=== PATIENT | female | born 1955 | race Caucasian/White ===

== ENCOUNTER → 2024-08-02 15:15 | Outpatient (REF) | payer MEDICARE, OTHER, SELFPAY | LOC: HWWDC 15:15 | PROVIDERS: ATTENDING PHYSICIAN Physician Assistant Medical | DX: Z12.31 Encounter for screening mammogram for malignant neoplasm of breast (principal) | CPT/HCPCS: 77063; 77067 ==

== ENCOUNTER 2025-04-03 10:11 | Emergency (ER) | payer MEDICARE, OTHER, SELFPAY ==
[2025-04-03 10:13] VITALS: BP 149/82
--- NOTE | 2025-04-03 10:30 | ED.GENMED ---
History of Present Illness
General
Chief Complaint: Fall
Time Seen by Provider: 04/03/25 10:29
History of Present Illness
History of Present Illness:
TIME OF INITIAL EVALUATION
- 10:30 AM
REVIEW OF OLD RECORDS
- The patient has history of admission here with transient global amnesia in 2022
Note:
CHIEF COMPLAINT(S)
Fall resulting in a head injury.
HISTORY OF PRESENT ILLNESS
The patient is a 69-year-old female who presented to the emergency department after falling from a chair the previous evening. She was standing on a chair to retrieve something, lost her footing, and slipped, striking her head on a china cabinet.
The patient reports a brief loss of consciousness, evidenced by hearing a loud bang followed by a sensation of opening her eyes. Upon gaining awareness, she felt disoriented or 'spacey' and reports a sensation of being 'off-balance.' No headache was
noted, but the patient experienced transient pins and needles since the fall. Prior to the fall, the patient was focused on attending a choir dinner, which delayed her seeking medical attention. The patients spouse remarked that she was 'woozy' and
initially resisted visiting the ER.
The patient is not on any anticoagulant medications, such as aspirin or Coumadin. There was no chest pain or vomiting reported, though she described experiencing a sensation of chills or pins and needles post-fall. Her pupil examination revealed
anisocoria, particularly with the left pupil appearing larger, but its potentially related to her previous cataract surgery and corneal transplant, as this finding was considered normal.
A review of past records revealed the patient had an episode of transient global amnesia in 2012, but she reports no ongoing memory or cognitive issues from that event. Historically, she has experienced long periods of time passing quickly,
indicating attention issues, which she feels have since resolved.
I discussed with at bedside.
EXTERNAL RECORDS REVIEWED
The patient�s records from 2012 indicate an episode of transient global amnesia.
CHRONIC MEDICAL CONDITIONS SIGNIFICANTLY AFFECTING CARE
History of transient global amnesia.
PAST SURGICAL HISTORY
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
PHYSICAL EXAM
- No focal neurological deficits noted. Anisocoria present, left pupil slightly larger, considered normal post-surgical variation.
- No alarming signs noted.
- General: Well appearing in no distress
- HEENT: Moist oral mucosa
- Cardiovascular: No chest wall tenderness
- Pulmonary: No respiratory distress
- Abdomen: Soft with no peritoneal signs, no tenderness
- Neurologic: Excellent strength all extremities, no coordination deficits
- Psychiatric: Appropriate mental status, normal insight and judgement, very minimal cognitive deficits but overall answering questions appropriately
- Extremities: Nontender, no edema, moves all extremities equally
- Skin: No rash, no lesions
- C-spine: No midline C-spine tenderness
PROBLEM LIST
Acute Problems:
- Fall with head injury
- Possible concussion
Chronic Problems:
- Anisocoria post-cataract and corneal transplant.
PLAN
A computed tomography scan of the head to rule out any intracranial bleeding or significant injury.
DIFFERENTIAL DIAGNOSIS
The Differential Diagnosis includes, in no particular order and is not limited to:
- Concussion
- Intracranial hemorrhage
- Vestibular dysfunction
- Orthostatic hypotension
- Inner ear disorder
- Transient ischemic attack
- Stroke
- Post-traumatic epilepsy
- Subdural hematoma
- Anxiety disorder
RADIOLOGY
- CT imaging obtained
EKG
- Not indicated
LABS
- Not indicated
UPDATE
-
DIAGNOSIS
- Possible concussion (ICD-10 Code: S06.0X0A)
SUMMARY OF ENCOUNTER
The patient, a 69-year-old female, presented to the emergency department following a fall from a chair, resulting in a head injury. She experienced a brief loss of consciousness and has since felt disoriented and off-balance. A CT scan of the brain
was performed to rule out any intracranial bleeding. Preliminary assessment revealed no alarming signs, but confirmation from the radiologist is pending.
ASSESSMENT
The patient is likely experiencing symptoms consistent with a concussion resulting from the fall.
PLAN
The patient was advised to rest and avoid strenuous activities to aid recovery from the potential concussion. She was advised to refrain from going to the gym or engaging in any activities that involve significant movement until her symptoms have
resolved. The option to attend [employer] practice was left to her discretion, provided her symptoms do not worsen.
INDEPENDENT INTERPRETATION OF TESTS
- My independent interpretation of the CT scan of the brain is that there is no evident intracranial bleeding or alarming findings, pending confirmation from the radiologist.
PATIENT EDUCATION AND COUNSELING
The patient was counseled on post-concussion care, emphasizing the importance of rest and avoiding activities that may pose a risk of further injury. It was recommended to monitor symptoms and adjust activities accordingly, prioritizing safety and
health.
MEDICAL DECISION MAKING
Number and Complexity of Problems Addressed: The patient presented with a potential concussion following a fall, requiring careful evaluation to rule out serious complications such as intracranial hemorrhage.
Data: The decision was supported by a CT scan to assess potential head injury severity. Results were preliminarily positive, showing no alarming findings.
Risk: Consideration for potential concussion management and the necessity to avoid further injury was emphasized. Recommendations for activity restrictions were given to mitigate risks associated with repeated head trauma.
Past History
Past History
ED Past Medical History: Other (ADHD)
ED Past Surgical History: Other (Corneal transplant right eye)
Social History
Tobacco: Non-smoker
Alcohol: Occasional
Personal:
Living: with family
Family History
Family History: Unable to obtain
Phy Exam
Physical Exam
Physical Exam:
See HPI
Course
Orders/Labs/Results
Orders:
Orders
04/03/25 10:38
CT Head W/o Iv Contrast Urgent
Comment:
Reason For Exam: head trauma ?alt ms
Vital Signs
Initial and Last Documented VS:
Initial Vital Signs
Temp Pulse Resp BP Pulse Ox
36.6 C 59 18 149/82 98
04/03/25 10:13 04/03/25 10:13 04/03/25 10:13 04/03/25 10:13 04/03/25 10:13
Last Documented Vital Signs
Temp Pulse Resp BP Pulse Ox
36.6 C 59 18 149/82 98
04/03/25 10:13 04/03/25 10:13 04/03/25 10:13 04/03/25 10:13 04/03/25 10:13
*Pulse Oximetry
Patient hypoxic: no (98% room air-normal)
*Critical Care Note
Total Time (30-74mins, 75-104mins- exclusive of procedures): Not Applicable
ED Attending Note
-
Portions of this chart may have been created with voice recognition software.� Occasional wrong word or��sound alike� substitutions may have occurred due to the inherent limitations of voice recognition software.
Discharge Plan
Departure
Patient Disposition: Home (Routine Discharge)
Date of Disposition: 04/03/25
Time of Disposition: 11:16
Patient with high blood pressure during this ER visit?: Yes
Discharge Problem:
Concussion
Instructions: Concussion, Adult (DC), BLOOD PRESSURE
Prescriptions:
No Action
citalopram 10 MG tablet
10 mg PO HS
fluticasone propionate 1 SPRAY spray,suspension
1 spray intranasal DAILY PRN (Reason: allergies)
(DME) hard/soft/gas permeable prods [Opti-Soak Soothing Drops] 15 ML drops
RIGHT EYE DAILY
Patient Comments:
puts on contact lens
(DME) soft lens rinse,store solution [Bio true] 118 ML solution
LEFT EYE DAILY
Patient Comments:
when she puts contacts in
aspirin 81 MG tablet,delayed release (DR/EC)
81 mg PO DAILY Qty: 0 0RF
dexmethylphenidate 5 MG tablet
1 tab PO TID Qty: 0 0RF
Patient Comments:
5 or 10 mg ? 2 pill bottles different doses
albuterol sulfate 8.5 GM HFA aerosol inhaler
8.5 gm inhalation DAILY PRN (Reason: sob) Qty: 0 0RF
Referrals:
Arvind Mercado MD [Family Provider, Family Practice]
Activity Restrictions/Additional Instructions:
CAT scan of the brain shows no bleeding. Return here if worse or other concerns. I suspect your symptoms are related to a concussion.
Interventions
Interventions:
*Risk Screen - Suicide Last Done: 04/03/25 10:13
*General Assessment Last Done: 04/03/25 10:13
*Neglect/Abuse Screening Last Done: 04/03/25 10:13
ED-Musculoskeletal Assessment Last Done: 04/03/25 10:32
ED- Neurological Assessment Last Done: 04/03/25 10:32
ED-Skin Assessment Last Done: 04/03/25 10:32
Discharge Date and Time
Print Language: ALBANIAN
[2025-04-03 12:02] VITALS: BP 136/82
== END 2025-04-03 11:40 | disposition home or self-care (01) ==
LOC: EMR 10:11
PROVIDERS: EMERGENCY PHYSICIAN Emergency Medicine; FAMILY PHYSICIAN Family Medicine
DX: S06.0X1A Concussion with loss of consciousness of 30 minutes or less, initial encounter (principal); W07.XXXA Fall from chair, initial encounter; Z94.7 Corneal transplant status
CPT/HCPCS: 99284; 70450

== ENCOUNTER 2025-08-05 06:28 | Emergency (ER) | payer MEDICARE, OTHER, SELFPAY ==
[2025-08-05 06:39] VITALS: BP 130/84
--- NOTE | 2025-08-05 08:26 | ED.SKININJ ---
HPI-Injury
General
Chief Complaint: Eye Problems
Source: patient
Exam Limitations: none
Time Seen by Provider: 08/05/25 07:55
Nursing documentation reviewed up to this point in time: agreed with
History of Present Illness-Injury
Initial Injury comments:
70 yo female with hx of Keratoconus, followed by [facility], presents for irritation and swelling of right eye. She states yesterday a.m. she had some mucus in the eye and as she went to wipe away the mucus she accidentally poked herself in
the eye. She then put her contacts in as it did not feel that bad but the eye had been watering throughout the day. 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 She took the contact out again and put it back in again. By the evening there was more mucus discharge the eye was irritated, she irrigated it with saline and removed her contacts again. She does
have a sensation of foreign body in the eye. She denies change in vision. She denies pain in the eyeball. She denies pain with moving the eye. She denies headache.
Past History
Past History
ED Past Medical History: Other (ADHD, Keratoconus)
ED Past Surgical History: Other (Corneal transplant right eye)
Social History
Tobacco: Non-smoker
Alcohol: Occasional
Personal:
Living: with family
Employment: Employed
Family History
Family History: Unable to obtain
Review of Systems
Review of Systems
Allergies reviewed?: Yes
All Other Systems: ROS reviewed and negative except as documented in HPI and ROS
Phy Exam
Physical Exam
Physical Exam:
PHYSICAL EXAMINATION:
General: no apparent distress, not acutely ill
Neuro: alert and oriented.
Psychiatric: well kept. interactive and cooperative
Musculoskeletal: Moves with ease
Skin: Warm, pink.
Eye Exam
Eye Exam: PERRL, EOMI, globe normal, visual basurto normal and other (Visual acuity, correctly reads number of fingers at 10 feet with affected eye, states 'I can't see very well without my contacts in.' Conjunctiva injected, mild periorbital
swelling, mild chemosis, fluorescein stain reveals several small corneal abrasions about the cornea. Lid everted, No FB )
Course
Orders/Labs/Results
Orders:
Orders
08/05/25 08:02
Tetracaine HCl [Tetracaine 0.5% Ophthalmic Solution] 1 drop .ROUTE .STK-MED ONE
08/05/25 08:19
Ofloxacin [Ocuflox] See Dose Instructions OPHTH NOW STA
Vital Signs
Initial and Last Documented VS:
Initial Vital Signs
Temp Pulse Resp BP Pulse Ox
97.6 F 57 20 130/84 98
08/05/25 06:39 08/05/25 06:39 08/05/25 06:39 08/05/25 06:39 08/05/25 06:39
Last Documented Vital Signs
Temp Pulse Resp BP Pulse Ox
97.6 F 57 20 130/84 98
08/05/25 06:39 08/05/25 06:39 08/05/25 06:39 08/05/25 06:39 08/05/25 08:31
MDM/Problems Addressed
Differential Diagnosis Includes:
corneal abrasion, FB, iritis
MDM/Problems Addressed:
70 yo female with hx of Keratoconus, followed by [facility] [place], presents for irritation and swelling of right eye. She states yesterday a.m. she had some mucus in the eye and as she went to wipe away the mucus she accidentally poked herself in
the eye. She then put her contacts in as it did not feel that bad but the eye had been watering throughout the day. 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 She took the contact out again and put it back in again. By the evening there was more mucus discharge the eye was irritated, she irrigated it with saline and removed her contacts again. She does
have a sensation of foreign body in the eye. She denies change in vision. She denies pain in the eyeball. She denies pain with moving the eye. She denies headache.
NAD
Good relief with topical anesthetic.
Multiple small corneal abrasions, no FB, no ciliary flare
Ocuflox drops applied and pt will f/u with her [facility] eye doctor
Return instructions discussed, all questions answered
*Pulse Oximetry
SaO2: 98
Oxygen Mode of Delivery: Room air
Patient hypoxic: not evaluated
*Critical Care Note
Total Time (30-74mins, 75-104mins- exclusive of procedures): Not Applicable
ED Attending Note
-
Portions of this chart may have been created with voice recognition software.� Occasional wrong word or��sound alike� substitutions may have occurred due to the inherent limitations of voice recognition software.
Discharge Plan
Departure
Patient Disposition: Home (Routine Discharge)
Date of Disposition: 08/05/25
Time of Disposition: 08:20
Patient with high blood pressure during this ER visit?: No
Condition: Good
Discharge Problem:
Right corneal abrasion
Instructions: Corneal Abrasion (DC), How to Use Eye Drops
Prescriptions:
No Action
citalopram 10 MG tablet
10 mg PO HS
fluticasone propionate 1 SPRAY spray,suspension
1 spray intranasal DAILY PRN (Reason: allergies)
(DME) hard/soft/gas permeable prods [Opti-Soak Soothing Drops] 15 ML drops
RIGHT EYE DAILY
Patient Comments:
puts on contact lens
(DME) soft lens rinse,store solution [Bio true] 118 ML solution
LEFT EYE DAILY
Patient Comments:
when she puts contacts in
aspirin 81 MG tablet,delayed release (DR/EC)
81 mg PO DAILY Qty: 0 0RF
dexmethylphenidate 5 MG tablet
1 tab PO TID Qty: 0 0RF
Patient Comments:
5 or 10 mg ? 2 pill bottles different doses
albuterol sulfate 8.5 GM HFA aerosol inhaler
8.5 gm inhalation DAILY PRN (Reason: sob) Qty: 0 0RF
Referrals:
Your eye doctor Gena [Other] - Follow up in 2-3 days
Arvind Mercado MD [Family Provider, Family Practice]
Activity Restrictions/Additional Instructions:
As we discussed, use the Ocuflox eye drops as follows: 1-2 drops in Right eye 4 times a day for 5 days.
See your eye doctor in 2-3 days, no contact lens wearing until further instructed.
Cool compress 10 minutes off and on as needed for swelling, soothing.
Tylenol or Ibuprofen as needed for pain
Return here immediately for eyeball pain, loss of vision, increasing swelling, or feeling worse in any way.
Interventions
Interventions:
*Risk Screen - Suicide Last Done: 08/05/25 06:41
*General Assessment Last Done: 08/05/25 06:41
*Neglect/Abuse Screening Last Done: 08/05/25 06:41
*ED- Fall Risk Assessment Last Done: 08/05/25 06:41
*ED COVID-19 Vaccine History Last Done: 08/05/25 06:41
*ED Influenza Vaccine History Last Done: 08/05/25 06:41
*Nursing Disposition Last Done: 08/05/25 08:40
Discharge Date and Time
Discharge Date/Time: 08/05/25 08:41
Print Language: [id number]
[2025-08-05] MEDS: OCUFLOX 1 DROP OPHTH (08:37)
== END 2025-08-05 08:41 | disposition home or self-care (01) ==
LOC: EMR 06:28
PROVIDERS: EMERGENCY PHYSICIAN Emergency Medicine; FAMILY PHYSICIAN Family Medicine
DX: S05.01XA Injury of conjunctiva and corneal abrasion without foreign body, right eye, initial encounter (principal); W44.8XXA Other foreign body entering into or through a natural orifice, initial encounter; F90.9 Attention-deficit hyperactivity disorder, unspecified type; Z94.7 Corneal transplant status
CPT/HCPCS: 99282

== ENCOUNTER → 2025-08-31 13:03 | Outpatient (REF) | payer MEDICARE, OTHER, SELFPAY | LOC: HWRAD 13:03 | PROVIDERS: ATTENDING PHYSICIAN Physician Assistant Medical | DX: M85.89 Other specified disorders of bone density and structure, multiple sites (principal); E55.9 Vitamin D deficiency, unspecified | CPT/HCPCS: 77080 ==